=== PATIENT | female | born 1985 | race Caucasian/White ===

== ENCOUNTER → 2024-05-18 | Outpatient (BNVA) | payer MEDICAID, SELFPAY | END | disposition home or self-care (01) | PROVIDERS: PCP Nurse Practitioner Family; Referring Provider Nurse Practitioner Family; Visit Provider Nurse Practitioner Family | DX: M54.41 Lumbago with sciatica, right side (principal); E03.8 Other specified hypothyroidism; E78.5 Hyperlipidemia, unspecified | CPT/HCPCS: 99214 ==

== ENCOUNTER → 2024-06-15 | Outpatient (BNVA) | payer MEDICAID, SELFPAY | END | disposition home or self-care (01) | PROVIDERS: PCP Nurse Practitioner Family; Referring Provider Nurse Practitioner Family; Visit Provider Nurse Practitioner Family | DX: M54.41 Lumbago with sciatica, right side (principal) | CPT/HCPCS: 99213 ==

== ENCOUNTER 2024-08-17 09:06 | Outpatient (AMB) | payer MEDICAID, SELFPAY ==
--- NOTE | 2024-08-17 09:14 | GYNCLNT_ITS ---
Vital Signs 08/17/24 09:24 Height 1.78 m Height Method Stated Weight 99.564 kg Weight Measurement Method Standing Scale BMI 31.4 BP 106/74 Blood Pressure Source Automatic Cuff Blood Pressure Location Left Upper Arm Position Sitting Respiration 12 Pulse 66 Pulse Source Monitor Temp 97.8 F Temp Source Oral Pulse Oximetry (%) 96 Oxygen Delivery Method Room Air Allergies/Home Meds Allergies & Medications Allergies fluoxetine (From Prozac) Allergy (Severe, Verified 08/17/24 09:25) angioedema adhesive Allergy (Unknown, Verified 08/17/24 09:25) RED RASH cephalexin (From Keflex) Allergy (Verified 08/17/24 09:25) Nausea Medication Reconciliation lidocaine 5 % topical patch 2 patch topical Q24H #60 ea 06/15/24 [Rx Confirmed 08/17/24] Intake Visit Data Collection New Patient or Established: Established Patient (seen at [facility] within 3 years) Reason for Visit:: MASS ON UTERUS FOLLOW UP Seen by Clinical Staff ONLY (RN/MA): No Pickle Cutter Required: No Do You Feel Safe at Home: Yes Authorities Contacted: N/A PCP or OBGYN visit in last 3 months: Yes Hx Now: No Are you currently on any form of Control: Yes Last menstrual period: 08/16/24 Pain Present Currently: No Pain Scale Used: [place]ham-Tarango/Numerical Pain scale:: 0 Smoking Status Smoking Status: Never smoker Waterproof Material Folder history Waterproof Material Folder History Menstrual regularity: regular Flow: heavy Monthly: Yes How many days does period last: 5 Currently sexually active: Yes Questionnaires Covid-19 Vaccine Questionnaire Has patient been vacinated for Covid-19 Have you been vacinated for Covid-19: Yes PHQ-9 PHQ-2 Over the last 2 weeks, how often have you been bothered by any of the following problems? 1. Little interest or pleasure in doing things: not at all 2. Feeling down, depressed, or hopeless: not at all Total score: 0 PHQ-9 3. Trouble falling or staying asleep, or sleeping too much: Not at all 4. Feeling tired or having little energy: Not at all 5. Poor appetite or overeating: Not at all 6. Feeling bad about yourself - or that you are a failure or have let yourself or your family down: Not at all 7. Trouble concentrating on things, such as reading the newspaper or watching television: Not at all 8. Moving or speaking so slowly that other people could have noticed? - Or the opposite - being so fidgety or restless that you have been moving around a lot more than usual: not at all 9. Thoughts that you would be better off or of hurting yourself in some way: Not at all Total score: 0 Source: Developed by Drs. Gonzalo Palomares, Yenifer Garibay, Earle Chatman and colleagues, with an educational marvin from [employer]. Depression screen completed yes Social History Living Situation History Lives With: Family Housing: House Tobacco History Smoking Status: Never smoker Second Hand Smoke Exposure: No Alcohol History Alcohol Intake: Current Alcohol Intake Frequency: holidays/special occasions only Substance Use History Substance Use: MARIJUANA GUMMIES Domestic Abuse History Do You Feel Safe at Home: Yes Past Medical History Past Medical History Have you ever been diagnosed with any of the following: Neurological Problems Cerebrovascular Accident (CVA): No Transient Ischemic Attacks (TIA): No Dementia: No Alzheimer's Disease: No Parkinson's Disease: No Brain Tumor: No Meningitis: No Seizures: No Epilepsy: No Multiple Sclerosis: No Cerebral Palsy: No Amyotrophic Lateral Sclerosis (ALS/Francheska Gehrig's): No Guillain-[place] Syndrome: No Spina Bifida: No Paralysis: No Peripheral Neuropathy: No Santo's Palsy: No Subdural Hematoma: No Cardiology Problems Myocardial Infarction: No Cardiac Arrhythmia: No Atrial Fibrillation: No Angina: No Heart Murmur: No Coronary Artery Disease: No Atherosclerotic Heart Disease: No Hypercholesterolemia: No Congestive Heart Failure: No Valvular Heart Disease: Yes Hypertension: Yes Respiratory Problems Chronic Obstructive Pulmonary Disease (COPD): No Asthma: No Bronchitis: No Emphysema: No Pneumonia: No Tuberculosis: No Pulmonary Edema: No Hx Cough: No Cough: No Wheezing: No Chest Deformities: No Smoking: No Smoking Cessation Counseling: No Smoking Exposure: No Tobacco Use: No Stomache/Intestinal Problems Liver Cancer: No Hepatitis: No Cirrhosis: No Pancreatic Cancer: No Pancreatitis: No Celiac Disease: No Gall Bladder Disease: No Gastrointestinal Bleed: No Esophageal Varices: No Bueno's Esophagus: No Colitis: No Ulcerative Colitis: No Diverticulitis: No Diverticulosis: No Genital/Urinary Problems Chronic Kidney Disease: No Renal Disease: No Reproductive Problems Breast Cancer: No Endometriosis: No Fibroids: No Genital Herpes: No Gonorrhea: No Pelvic Inflammatory Disease: No Polycystic Ovarian Syndrome: No Previous Pregnancies: Yes Syphilis: No Testicular Cancer: No Musculoskeletal Problems Muscular Dystrophy: No Myasthenia Gravis: No Marfan's Syndrome: No Bone Cancer: No Arthritis: No Rheumatoid Arthritis: No Head,Eye,Nose,Throat Problems Cataracts: No Glaucoma: No Blind: No Retinal Detachment: No Macular Degeneration: No Chronic Ear Infections: No Deafness: No Eye Prosthesis: No Endocrine Problems Diabetes Mellitus Type 1: No Diabetes Mellitus Type 2: No Hypoglycemia: Yes Heide's Syndrome: No Mohsen's Disease: No Blood Problems Anemia: No Sickle Cell Disease: No Psychologic Problems Schizophrenia: No Recreational Drug Use: No Bipolar Disorder: No Depression: No Anxiety: No Behavior Problems: No Self-Mutilation: No Attention Deficit Disorder: No Attention Deficit Hyperactivity Disorder: No Other Problems Hospitalization: No Autoimmune Disease: No Down Syndrome: No Autism: No Developmental Delay: No Cosmetic Surgery: No Shingles: No Falls: No Blood Transfusions: No Anesthesia Reactions: No Chicken Pox: Yes History of Present Illness HPI Narrative Ms. Wyatt, a 38-year-old female, presents on referral from her primary care provider for evaluation of pelvic pain and follow-up on imaging results. In October 2023, a CT scan of the abdomen and pelvis performed in the emergency department revealed a 20-millimeter hypodense lesion in the cervix. The patient has a hi story of HPV infection and an extensive family history of malignancy, including cervical cancer, which raised concerns. Subsequent imaging studies were performed. A transvaginal ultrasound on February 29, 2024, showed a uterus measuring 10 x 5.9 x 5.6 cm, an anterior uterine body mass measuring 13 x 11 x 14 mm, multiple benign cervical cysts, and an endometrial stripe of 12 mm. Both ovaries were within normal measurements with small follicles. Recent ultrasounds also revealed a vascular structure on the top of the uterus. The patient reports a vaginal discharge that has been occurring for about 6 months, sometimes with a foul odor. This symptom is unlikely related to the imaging findings, which showed nabothian cysts. The patient's last pap smear was within the last 2 to 3 years, at which time she also received the HPV vaccine. She has one child, delivered via vaginal 16 years ago. Review of Systems Review of Systems Systems Reviewed: All systems reviewed, normal except as documented Exam General Limitations: no limitations General Appearance: alert, in no apparent distress, comfortable, cooperative, healthy appearing, well developed and well groomed Head Head exam: atraumatic, normocephalic and normal inspection Neck Neck exam: Present normal inspection, full ROM and trachea midline Chest Chest inspection: Present normal inspection and symmetric chest wall rise Resp Respiratory exam: Present normal lung sounds bilaterally Card Cardiovascular exam: Present regular rate, normal rhythm and normal heart sounds Abdominal Abdominal exam: Present soft and normal bowel sounds Extremities Extremities exam: Present normal inspection and full ROM Back Back exam: Present normal inspection and full ROM Psych Psychiatric exam: Present normal affect and normal mood Skin Skin exam: Present warm, dry, intact and normal color Assessment & Plan Diagnosis / Problem List (1) Mass of uterus determined by ultrasound: Status: Acute Plan: Problem-Based Assessment and Plan Cervical lesion 38-year-old female presents with a 20-millimeter hypodense lesion in the cervix, initially identified on CT scan in October 2023. Subsequent transvaginal ultrasound on 02-29-2024 revealed multiple benign cervical cysts. The patient has a history of HPV infection and an extensive family history of malignancy, including cervical cancer. Given these findings and risk factors, further evaluation is warranted to rule out malignancy. - MRI of pelvis to further characterize the cervical lesion - Expanded female genetic cancer risk panel to assess for high-risk genes - Consider prophylactic hysterectomy if high-risk genes are present - Serial imaging for monitoring if genetic testing is negative Uterine mass Transvaginal ultrasound revealed an anterior uterine body mass measuring 13 x 11 x 14 millimeters. The uterus measures 10 x 5.9 x 5.6 centimeters. The endometrial stripe was noted to be 12 millimeters. Given the patient's family history of uterine cancer and the presence of this mass, further evaluation is necessary. - MRI of pelvis to further characterize the uterine mass - Expanded female genetic cancer risk panel to assess for high-risk genes - Consider prophylactic hysterectomy if high-risk genes are present - Serial imaging for monitoring if genetic testing is negative Vaginal discharge Patient reports a 6-month history of vaginal discharge, sometimes with a foul odor. This is unlikely related to the imaging findings of nabothian cysts, which are benign. The discharge may be indicative of an infection. - Prescribe a course of antibiotics - Follow-up evaluation if discharge persists after antibiotic treatment - Prescription to be filled at [facility] in [place], Portable Cancer screening Patient has an extensive family history of various cancers, including prostate, breast, cervical, and lung cancer. Last pap smear was 2-3 years ago, at which time the patient received the HPV vaccine. Breast cancer screening is due next year. - Schedule breast cancer screening for next year - Continue regular pap smears as per guidelines - Expanded female genetic cancer risk panel to assess overall cancer risk Additional Assessment Medical Decision Making Nisa Wyatt is a 38-year-old female with a history of HPV infection presenting for evaluation of a 20mm cervical lesion found on CT and pelvic pain. The zenaida ent's presentation with a cervical lesion, history of HPV, and extensive family history of malignancies raises concern for potential cervical cancer. Transvaginal ultrasound revealed a [id number] anterior uterine body mass and multiple benign cervical cysts, while CT showed a 20mm hypodense cervical lesion. The presence of these findings, combined with the patient's risk factors, necessitates further investigation. An MRI is recommended to better characterize the uterine and cervical lesions. Additionally, an expanded female genetic cancer risk panel is advised to assess for high-risk genes, which could influence management decisions, potentially including prophylactic hysterectomy if positive. The differential diagnosis includes cervical cancer, uterine fibroids, and benign cervical cysts. The patient's vaginal discharge, while concerning, is likely unrelated to the imaging findings and may be addressed with antibiotics. The complexity of the case is increased by the patient's family history of various cancers and the need to rule out potential gynecological malignancies. Preventive Medicine: Patient Counseling: Sexual Health, Contraception, and Family Planning Your sexual and reproductive health is important, and there are several steps you can take to protect yourself and make informed decisions. Safe Sex and STD Prevention: ? Condom Use: Consistent use of condoms during vaginal, anal, and oral sex reduces the risk of sexually transmitted diseases (STDs), including HIV. ? Regular Testing: Routine STD testing is important, especially if you or your partner have multiple partners. Early detection helps prevent complications. ? Open Communication: Discuss your sexual health and testing history with your partner(s) to make safer choices together. Contraceptive Options: ? Barrier Methods: Condoms (male and female) provide protection against both and STDs. ? Hormonal Methods: control pills, patches, vaginal rings, injections, and implants prevent when used consistently and correctly. ? Long-Acting Reversible Contraception (LARC): IUDs (hormonal and non- hormonal) and implants provide long-term, highly effective protection. ? Permanent Contraception: Options like tubal ligation or vasectomy are available for those who do not wish to have more children. Emergency Contraception (EC): ? Emergency contraception (e.g., Plan B or Yumiko) can be used after unprotected sex or contraceptive failure and is most effective when taken within 72 hours (up to 5 days for some options). ? EC does not protect against STDs, so follow up with testing if exposure is a concern. Family Planning and Pre- Health: ? If you are planning to become , begin taking folic acid 1 mg daily to reduce the risk of neural tube defects. ? Avoid teratogenic drugs (medications that can harm a developing baby) and discuss any prescription medications with your healthcare provider before . ? It is recommended to space pregnancies at least 18 months apart to support your health and reduce -related risks. Office Procedures OB Clinic LOC & Office Proc's Nursing/Assessment Patient Status: Established Patient OB Clinic Nursing Assessment: Medication Reconciliation, Update PMH in EMR and Vital Signs OB Clinic Coordination of Care: Complex Care and Chronic Disease 1-5, Consent,records obtained, informed consent, Education Simp Pt/Fam, Lab and Imaging orders, Results/Orders obtained and Staff clarify orders Established Patient Charge Established Patient Point Assignment: 105 Established Patient Point Charge: EP Level 3 ([id number])
[2024-08-17 09:24] VITALS: BP 106/74; PULSE 66; RESP 12; TEMP 36.6; O2SAT 96; BMI 31.4
== END 2024-08-17 09:57 | disposition home or self-care (01) ==
LOC: HODSOBC 09:06
PROVIDERS: PCP Obstetrics & Gynecology; Referring Provider Obstetrics & Gynecology; Supervising Provider Obstetrics & Gynecology; Visit Provider Obstetrics & Gynecology
DX: N85.8 Other specified noninflammatory disorders of uterus (principal)
CPT/HCPCS: 99213; G0463

== ENCOUNTER → 2024-09-13 | Outpatient (CLI) | payer MEDICAID, SELFPAY ==
[2024-09-12 13:47] LABS: HCG Qualitative,Urine Negative
--- NOTE | 2024-09-13 16:30 | XR_ITS ---
Examination: MRI pelvis with intravenous contrast Technique: Multiple axial sagittal coronal MRI pelvis images post intravenous administration 20 cc gadolinium Indications: Transvaginal pelvic sonogram February 2024 vascular solid anterior uterine body mass 16 x 15 x 17 mm Exam date and time: September 13, 2024 1743 hrs. Findings: Uterus 10 x 6 x 5 cm Benign cervical cysts 10 mm uterine fundal mass likely fibroid degeneration No enhancing solid cervical mass,. Right adnexal benign 25 mm cyst No pelvic lymphadenopathy Impression: 8mm uterine fundal mass likely fibroid degeneration Benign cervical cyst No enhancing cervical mass Right adnexal 25 mm cyst
== END | disposition home or self-care (01) ==
PROVIDERS: PCP Nurse Practitioner Family; Referring Provider Obstetrics & Gynecology; Visit Provider Obstetrics & Gynecology
DX: R19.09 Other intra-abdominal and pelvic swelling, mass and lump (principal); N88.8 Other specified noninflammatory disorders of cervix uteri; E27.8 Other specified disorders of adrenal gland; Z32.00 Encounter for pregnancy test, result unknown
CPT/HCPCS: 72196; 81025; A9579

== ENCOUNTER 2024-09-20 08:33 | Outpatient (AMB) | payer MEDICAID, SELFPAY ==
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
[2024-09-20 08:47] VITALS: BP 117/77; PULSE 72; RESP 16; TEMP 36.5; O2SAT 96; BMI 31.0
== END 2024-09-20 09:18 | disposition home or self-care (01) ==
LOC: HODSOBC 08:33
PROVIDERS: PCP Obstetrics & Gynecology; Referring Provider Obstetrics & Gynecology; Supervising Provider Obstetrics & Gynecology; Visit Provider Obstetrics & Gynecology
DX: N71.0 Acute inflammatory disease of uterus (principal); N85.8 Other specified noninflammatory disorders of uterus
CPT/HCPCS: 99213; G0463

== ENCOUNTER 2024-09-27 11:50 | Outpatient (AMB) | payer MEDICAID, SELFPAY ==
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
== END 2024-09-27 12:14 | disposition home or self-care (01) ==
LOC: HODSOBC 11:50
PROVIDERS: PCP Obstetrics & Gynecology; Referring Provider Obstetrics & Gynecology; Supervising Provider Obstetrics & Gynecology; Visit Provider Obstetrics & Gynecology
DX: N71.0 Acute inflammatory disease of uterus (principal); N85.8 Other specified noninflammatory disorders of uterus
CPT/HCPCS: 99212; G0463